=== PATIENT | male | born 1960 | race Caucasian/White ===

== ENCOUNTER → 2022-12-06 | Outpatient (CLI) | payer BC ==
--- NOTE | 2022-12-06 12:22 | XR ---
EXAM TYPE: LUMBAR SPINE X RAY SERIES COMPARISON: NONE HISTORY: Pain TECHNIQUE: Three views are submitted. FINDINGS: Alignment is anatomic. The pedicles are intact. The transverse processes are intact. There is grad e 1\2 anterolisthesis of L4 and L5 with severe degenerative disc disease. Severe degenerative disc di sease is seen at all levels of the lumbar spine with multilevel vacuum disc. There is severe facet arthropathy particularly noted at levels L3-S1 with suspected severe bilateral foraminal encroachment. Moderate to severe degenerative disc disease visualized lower lumbar spine an d there is a slight curvature of the spine. Chronic appearing sclerosis involving the upper margin of the left SI joint. IMPRESSION: 1. Severe degenerative disc disease at all levels with grade 1\2 anterior listhesis L4 on L5. Severe multilevel facet arthropathy likely results in significant foraminal encroachment at levels L3-S1.
== END | disposition home or self-care (01) ==
LOC: RADXRMAIN 11:48
PROVIDERS: ATTEND Nurse Practitioner Family
DX: M51.36 Other intervertebral disc degeneration, lumbar region (principal); M47.816 Spondylosis without myelopathy or radiculopathy, lumbar region; M43.16 Spondylolisthesis, lumbar region
CPT/HCPCS: 72100

== ENCOUNTER → 2023-04-15 | Outpatient (CLI) | payer BC ==
--- NOTE | 2023-04-15 17:46 | US ---
EXAMINATION TYPE: US scrotum with doppler. Grayscale and color Doppler Duplex imaging performed of aly brown scrotum. DATE OF EXAM: 04/15/2023 COMPARISON: NONE CLINICAL INDICATION: Male, 62 years old with history of N50.82 SCROTAL PAIN; left testicle pain for 1 month EXAM MEASUREMENTS: TESTICLES: Right Testicle: 4.6 x 2.3 x 3.4 cm Left Testicle: 4.8 x 2.0 x 3.0 cm EPIDIDYMIS HEAD: Right Epididymis: 1.1 cm Left Epididymis: 1.3 cm Doppler performed to assess for testicular vascularity; good bilateral color flow and waveforms are s een. There is no evidence of testicular torsion. May be asymmetrically mildly increased left testic ular color Doppler flow Presence of hydroceles: yes. fluid collection medially = 4.3cm on the right and 3.6cm on the left Presence of varicoceles: yes, lateral to bilateral testes *cystic lesion left epididymis = 0.7 x 0.7 x 0.7cm IMPRESSION: 1. There may be mildly increased vascularity to the left testis correlate for epididymoorchitis. 2. Appropriate arterial and venous spectral waveforms to the testes. 3. No evidence for intratesticular mass. 4. Bilateral hydroceles. 5. Bilateral varicocele.
== END | disposition home or self-care (01) ==
LOC: RADUSWWP 16:41
PROVIDERS: ATTEND Surgery
DX: N43.3 Hydrocele, unspecified (principal); I86.1 Scrotal varices; N50.82 Scrotal pain
CPT/HCPCS: 76870; 93975